=== PATIENT | male | born 1985 | race Two or more races ===

== ENCOUNTER 2021-07-04 09:48 | Emergency (ER) | payer BC, OTHER ==
[~2021-07-04] VITALS: Ht 167.6 cm; Wt 68.5 kg
[2021-07-04 10:01] VITALS: BP 121/70
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
[2021-07-04] MEDS ORDERED: IBUPROFEN 600 MG TABLET PO ONE (10:30)
[2021-07-04] MEDS ORDERED: IBUPROFEN 600 MG TABLET ONE (10:33)
--- NOTE | 2021-07-04 10:42 | NUR ---
Patient discharged to home in stable condition. Written and verbal after care instructions given. Patient verbalizes understanding of instruction.
== END 2021-07-04 10:46 | disposition home or self-care (01) ==
LOC: ER 09:52
DX: S06.0X0A Concussion without loss of consciousness, initial encounter (principal); R51.9 Headache, unspecified; F32.9 Major depressive disorder, single episode, unspecified; V49.49XA Driver injured in collision with other motor vehicles in traffic accident, initial encounter; Y93.89 Activity, other specified; Y92.488 Other paved roadways as the place of occurrence of the external cause; Y99.8 Other external cause status

== ENCOUNTER 2024-05-27 17:13 | Emergency (ER) | payer BC, OTHER ==
[~2024-05-27] VITALS: Ht 167.6 cm; Wt 72.6 kg
[2024-05-27 17:37] VITALS: TEMP 97.9
[2024-05-27] MEDS ORDERED: KETOROLAC TROMETHAMINE 15 MG/ML VIAL ONE (18:02)
[2024-05-27 18:14] LABS: BASOPHILS % (AUTO) 0.5 % (0.0-2.0); EOSINOPHILS # (AUTO) 0.1 K/uL (0.0-0.7); EOSINOPHILS % (AUTO) 1.4 % (0.0-6.0); HEMATOCRIT 40 % (39-51); HEMOGLOBIN 13.5 g/dL (13.5-17.5); LYMPHOCYTES # (AUTO) 2.4 K/uL (0.8-4.8); LYMPHOCYTES % (AUTO) 32.3 % (20.0-44.0); MEAN CORPUSCULAR HEMOGLOBIN 32 PG (26.0-33.0); MEAN CORPUSCULAR HGB CONC 34 g/dl (31.0-36.0); MEAN CORPUSCULAR VOLUME 95 fL (80-96); MONOCYTES # (AUTO) 0.7 K/uL (0.1-1.30); MONOCYTES % (AUTO) 9.7 % (2.0-12.0); NEUTROPHILS # (AUTO) 4.2 K/uL (1.8-8.9); NEUTROPHILS % (AUTO) 56.1 % (43.0-81.0); PLATELET COUNT (AUTO) 234 K/uL (150-450); RED BLOOD CELL COUNT(AUTO) 4.26 MIL/uL (4.5-6.0); RED CELL DISTRIBUTION WIDTH 13.3 % (11.5-15.0); WHITE BLOOD COUNT (AUTO) 7.6 K/uL (4.3-11.0)
[2024-05-27 18:17] VITALS: BP 125/72; O2SAT 100
[2024-05-27 18:21] LABS: CALCIUM, SERUM 9.4 mg/dL (8.5-10.1); CREATININE 1.2 mg/dL (0.6-1.3)
[2024-05-27] MEDS: IV NS 0.9% 500 ML BAG IV ONE (18:23)
[2024-05-27] MEDS: KETOROLAC TROMETHAMINE 15 MG/ML VIAL IV ONE (18:23)
[2024-05-27 18:29] LABS: ALBUMIN 3.6 g/dL (3.4-5.0); BILIRUBIN,DIRECT 0.2 mg/dL (0.0-0.2); BILIRUBIN,TOTAL 0.8 mg/dL (0.2-1.0); TOTAL PROTEIN, SERUM 7.1 g/dL (6.4-8.2)
== END 2024-05-27 18:45 | disposition home or self-care (01) ==
LOC: ER 17:25
DX: R10.32 Left lower quadrant pain (principal); F32.A Depression, unspecified
CPT/HCPCS: 99283; 96374; 96361; 85025; 80048; 83690; 80076; 36415; J7040; J1885